=== PATIENT | male | born 1960 | race Caucasian/White ===

== ENCOUNTER 2020-05-23 07:51 | Emergency (ER) | payer MEDICARE ==
[2020-05-23 08:37] LABS: BASOPHILS # (AUTO) 0.1 10^3/uL (0.0-0.1); BASOPHILS % (AUTO) 0.6 %; EOSINOPHILS # (AUTO) 0.5 10^3/uL (0.0-0.7); EOSINOPHILS % (AUTO) 5.5 %; HCT - HEMATOCRIT 41.2 % (42.0-52.0); HGB - HEMOGLOBIN 14.2 g/dL (14.0-18.0); LYMPHOCYTES # (AUTO) 2.2 10^3/uL (1.5-3.5); LYMPHOCYTES % (AUTO) 27.1 %; MEAN CORPUSCULAR HEMOGLOBIN 32.9 pg (27.0-31.0); MEAN CORPUSCULAR HGB CONC 34.5 g/dL (32.0-36.0); MEAN CORPUSCULAR VOLUME 95.6 fL (80.0-94.0); MEAN PLATELET VOLUME 9.7 fL (7.4-11.4); MONOCYTES # (AUTO) 0.6 10^3/uL (0.0-1.0); MONOCYTES % (AUTO) 7.4 %; NEUTROPHILS # (AUTO) 4.9 10^3/uL (1.5-6.6); NEUTROPHILS % (AUTO) 59.2 %; PLT - PLATELET COUNT 303 10^3/uL (130-450); RED BLOOD COUNT 4.31 10^6/uL (4.70-6.10); RED CELL DISTRIBUTION WIDTH 12.1 % (12.0-15.0); WHITE BLOOD COUNT 8.2 x10^3/uL (4.8-10.8)
[2020-05-23 08:51] LABS: ALBUMIN 4.2 g/dL (3.2-5.5); ALBUMIN/GLOBULIN RATIO 1.1 (1.0-2.2); BILIRUBIN,TOTAL 0.5 mg/dL (0.2-1.0); CALCIUM 9.6 mg/dL (8.5-10.3); POTASSIUM 3.8 mmol/L (3.5-5.0)
--- NOTE | 2020-05-23 08:53 | ED Physician Documentation ---
History of Present Illness - Stated complaint Stated Complaint: ABD PX - Chief complaint Chief Complaint: Abd Pain - History obtained from History obtained from: Patient - Additonal information Additional information: Patient comes emergency department chief complaint of low abdominal pain that ranges from cramping to stabbing over the last week. Patient states that waxes and wanes but overall has gotten steadily worse. He states he has had both frequent stools, which remind him of his IBS, and constipation. He states that he was put on a stool softener by his doctor because of the constipation and that 3 days ago, he was able to have a moist soft bowel movement. However, he noticed something that looked like a white noodle wrapped around and through the stool. He does not think it was mucus and is concerned that it may have been a warm. The patient did not take a picture of it or save it. He has not seen anything else like this since. The patient states that he and his have been quarantining fairly aggressively during Cov, and have not traveled anywhere out of the country. They have A madrid retriever, but the dog was just taken to the vet recently and checked for worms, and patient states they were told that the dog does not have worms. Patient denies any weight loss. He states his appetite is decreased. No fever or chills. He has had nausea but no vomiting. No other complaints at this time. Patient does have a history of diverticulitis some years ago. Review of Systems Ten Systems: 10 systems reviewed and negative Constitutional: reports: Reviewed and negative Eyes: reports: Reviewed and negative Ears: reports: Reviewed and negative Nose: reports: Reviewed and negative Throat: reports: Reviewed and negative Cardiac: reports: Reviewed and negative Respiratory: reports: Reviewed and negative GI: reports: Abdominal Pain, Nausea, Constipation, Diarrhea : reports: Reviewed and negative Skin: reports: Reviewed and negative Musculoskeletal: reports: Reviewed and negative Neurologic: reports: Reviewed and negative Psychiatric: reports: Reviewed and negative Endocrine: reports: Reviewed and negative Immunocompromised: reports: Reviewed and negative PD PAST MEDICAL HISTORY - Past Medical History Cardiovascular: High cholesterol, Arrhythmia Respiratory: Asthma Endocrine/Autoimmune: Type 2 diabetes GI: GERD, Diverticulitis, Other HEENT: None Psych: Depression, Anxiety, Panic attacks, Post traumatic stress disorder Musculoskeletal: Other Other Past Medical History: IBS - Past Surgical History HEENT: Other - Present Medications Home Medications: Ambulatory Orders Medication Instructions Recorded Confirmed Metoprolol Tartrate 75 mg ORAL BID 03/21/15 05/23/20 clonazePAM [Clonazepam] 1 mg ORAL TID 03/21/15 05/23/20 metFORMIN [Glucophage] 1,000 mg ORAL DAILY 03/21/15 05/23/20 Albendazole 400 mg PO ONCE 1 Days #2 tablet 05/23/20 Albuterol Sulf [Ventolin Hfa 1 - 2 puffs PO PRN PRN 05/23/20 05/23/20 Inhaler] Bupropion HCl [Wellbutrin Xl] 300 mg PO DAILY 05/23/20 05/23/20 Ciprofloxacin HCl [Cipro] 500 mg PO BID #20 tablet 05/23/20 Fluticasone Propionate [Flovent 1 - 2 puffs PO DAILY 05/23/20 05/23/20 Diskus] HYDROcod/ACETAM 5/325 [[place] 5/325] 1 - 2 ea PO Q6H PRN #15 tablet 05/23/20 Ibuprofen [Advil] 600 mg PO TID 05/23/20 05/23/20 Levothyroxine [Synthroid] 50 mcg PO QDAC 05/23/20 05/23/20 Liothyronine [Cytomel] 25 mcg PO DAILY 05/23/20 05/23/20 Sertraline HCl [Zoloft] 100 mg PO DAILY 05/23/20 05/23/20 metroNIDAZOLE [Flagyl] 500 mg PO BID #20 tablet 05/23/20 - Allergies Allergies/Adverse Reactions: Allergies Allergy/AdvReac Type Severity Reaction Status Date / Time Sulfa (Sulfonamide Allergy Rash Verified 05/23/20 08:17 Antibiotics) codeine AdvReac Nausea Verified 05/23/20 08:17 - Social History Does the pt smoke?: No Smoking Status: Never smoker Does the pt drink ETOH?: Yes Does the pt have substance abuse?: No - Immunizations Immunizations are current?: Yes PD ED PE NORMAL - Vitals Vital signs reviewed: Yes - General General: Alert and oriented X 3, No acute distress, Well developed/nourished - HEENT HEENT: Atraumatic, PERRL, EOMI, Moist mucous membranes - Neck Neck: Supple, no meningeal sign - Cardiac Cardiac: RRR, No murmur, Strong equal pulses - Respiratory Respiratory: No respiratory distress, Clear bilaterally - Abdomen Abdomen: Soft, Non distended, Other (suprapubic tenderness, moderate, no RB/guarding) - Back Back: No CVA TTP - Derm Derm: Normal color, Warm and dry, No rash - Extremities Extremities: No deformity, No edema, No calf tenderness / cord - Neuro Neuro: Alert and oriented X 3 - Psych Psych: Normal mood, Normal affect Results - Vitals Vitals: Vital Signs - 24 hr 05/23/20 05/23/20 05/23/20 07:55 10:08 10:56 Temperature 36.8 C 36.5 C Heart Rate 86 72 Respiratory 16 16 Rate Blood Pressure 139/91 H 142/98 H O2 Saturation 94 97 05/23/20 11:17 Temperature Heart Rate 79 Respiratory 16 Rate Blood Pressure 132/101 H O2 Saturation 96 Oxygen O2 Source Room air - Labs Labs: Laboratory Tests 05/23/20 05/23/20 08:24 08:24 WBC 8.2 RBC 4.31 L Hgb 14.2 Hct 41.2 L MCV 95.6 H MCH 32.9 H MCHC 34.5 RDW 12.1 Plt Count 303 MPV 9.7 Neut # (Auto) 4.9 Lymph # (Auto) 2.2 [place] # (Auto) 0.6 Eos # (Auto) 0.5 Baso # (Auto) 0.1 Absolute Nucleated RBC 0.00 Nucleated RBC % 0.0 Sodium 140 Potassium 3.8 Chloride 104 Carbon Dioxide 23 Anion Gap 13.0 BUN 11 Creatinine 1.0 Estimated GFR (MDRD) 76 L Glucose 118 H Calcium 9.6 Total Bilirubin 0.5 AST 21 ALT 18 Alkaline Phosphatase 49 Total Protein 8.0 Albumin 4.2 Globulin 3.8 Albumin/Globulin Ratio 1.1 Lipase 19 L PD MEDICAL DECISION MAKING - ED course Complexity details: reviewed results, re-evaluated patient, considered differential, d/w patient ED course: The patient was worked up with labs, UA and ultimately, CT scan of the abdomen and pelvis. Labs and UA were unremarkable. The CT of the abdomen and pelvis showed findings consistent with likely colitis however patient was started on antibiotics for this. I did not know what to make of the patient's story about a possible worm. He had not been able to give us any stool sample, so although ova and parasites were ordered, I could not move forward word with this order. Patient was overall well-appearing and I did not have reason to admit him to the hospital. I give him prescriptions for ciprofloxacin and Flagyl, which he has been started on the emergency department. He also was given a prescription for albendazole 400 mg once to deal with his possible intestinal parasitism. We have discussed that if he is not feeling better by the end of the week, he will need to make an appointment to follow-up with his primary care physician Departure - Departure Disposition: 01 Home, Self Care Clinical Impression: Colitis, Intestinal parasitism Condition: Stable Instructions: ED IBS Prescriptions: Albendazole 400 mg PO ONCE 1 Days #2 tablet Ciprofloxacin HCl [Cipro] 500 mg PO BID #20 tablet metroNIDAZOLE [Flagyl] 500 mg PO BID #20 tablet HYDROcod/ACETAM 5/325 [[place] 5/325] 1 - 2 ea PO Q6H PRN #15 tablet PRN Reason: Pain Comments: Your labs look good. Your CT scan shows inflammation of the rectum and the last part of your colon. This is most likely why you have been having some pain and cramping. We have not been able to test your stool for eggs or any evidence of worms, since you have not been able to give us a sample. You will be treated presumptively for intestinal parasites with the standard single dose of albendazole, and anti-worm agent in the agent of choice for roundworms, which is most Consistent with what you have described. If there continues to be any question, you should collect a stool sample as soon as possible and take it to your primary doctor's office for testing. You will be placed on a 10-day course of antibiotics for your colitis. You will also be given some medication for pain to take as needed. Please call first thing this afternoon or tomorrow to schedule a follow-up appointment with your doctor. Discharge Date/Time: 05/23/20 11:19
[2020-05-23] MEDS ORDERED: IOVERSOL 320 100 ML VIAL IVP ONE ×2 (09:47→10:09)
[2020-05-23] MEDS ORDERED: HYDROmorphone 1 MG/ML CARPUJECT IVP STA (09:54)
--- NOTE | 2020-05-23 10:16 | CT Report ---
PROCEDURE: Abdomen/Pelvis W INDICATIONS: low abdominal pain, worsening CONTRAST: IV CONTRAST: Optiray 320 ml: 100 PO CONTRAST: *NO PO CONTRAST TECHNIQUE: After the administration of IV contrast, 5 mm thick sections acquired from the diaphragms to the symp hysis. 5 mm thick coronal and sagittal reformats were acquired. For radiation dose reduction, the f ollowing was used: automated exposure control, adjustment of mA and/or kV according to patient size. COMPARISON: None. FINDINGS: Image quality: Excellent. ABDOMEN: Lung bases: Mild bibasilar scarring versus atelectasis is present. Heart size is normal. Solid organs: Liver and spleen are normal in size. There is a 15 mm cyst within the medial segment l eft hepatic lobe superiorly. Gallbladder is mildly distended demonstrates several calculi within its lumen. No evidence of surrounding fat stranding is present. Biliary system is non dilated. Pancreas enhances normally. No adrenal nodules. Kidneys demonstrate normal size and enhancement, without hy dronephrosis. Peritoneum and bowel: Stomach and small bowel are grossly unremarkable. Appendix is normal. The colon is nondistended. There is moderate thickening of the proximal, mid, and distal sigmoid colon, as wel l as the rectum. Moderate facet stranding surrounds the sigmoid colon. Diverticulosis of the sigmoid colon is present. No free fluid or air. Nodes and vessels: No retroperitoneal or mesenteric adenopathy by size criteria. Aorta and inferior vena cava are normal in size. Miscellaneous: No ventral hernias. PELVIS: Genitourinary: Bladder wall thickness is normal. Miscellaneous: No inguinal hernias or adenopathy. Bones: No suspicious bony lesions. L4-S1 fusion has been performed. No vertebral body compression f ractures. IMPRESSION: 1. Sigmoid colonic thickening with surrounding fat stranding, consistent with infection, inflammation , versus ischemia. No pericolonic abscess. 2. Normal appendix. 3. Cholelithiasis with no evidence of cholecystitis. Reviewed by: Rigo Valdez MD on 05/23/2020 10:14 AM [facility] [[email or web address]] Approved by: Rigo Valdez MD on 05/23/2020 10:14 AM PST Station ID: [id number]
[2020-05-23] MEDS ORDERED: CIPROFLOXACIN 250 MG TABLET PO STA (10:25)
[2020-05-23] MEDS ORDERED: metroNIDAZOLE 250 MG TABLET PO STA (10:25)
[2020-05-23 11:18] VITALS: BP 132/101
== END 2020-05-23 11:19 | disposition home or self-care (01) ==
LOC: ED 07:51
DX: K52.9 Noninfective gastroenteritis and colitis, unspecified (principal); B82.9 Intestinal parasitism, unspecified; E11.9 Type 2 diabetes mellitus without complications; Z79.84 Long term (current) use of oral hypoglycemic drugs
CPT/HCPCS: 36415; 74177; 80053; 83690; 85025; 96374; 99284; 99285; A9270; J1170; Q9967; 87177; 87209